=== PATIENT | male | born 1945 | race African-American/Black ===

== ENCOUNTER 2017-04-03 17:48 | Inpatient (IN) | payer MEDICARE, OTHER ==
[~2017-04-03] VITALS: Ht 172.7 cm; Wt 83.9 kg
[~2017-04-03 17:48] MED LIST: AMLO10TA4 PO; METO50TA7 PO; TAMS-3 PO
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
[2017-04-03] MEDS ORDERED: BISA10SU8 RC (18:26)
[2017-04-03] MEDS ORDERED: ALBU6.7H IH (18:26)
[2017-04-03] MEDS ORDERED: DOCU250C14 PO (18:26)
[2017-04-03] MEDS ORDERED: RISP4TAB4 PO (18:26)
[2017-04-03] MEDS ORDERED: MAGN400O6 PO (18:26)
[2017-04-03] MEDS ORDERED: NA P133E RC (18:26)
[2017-04-03] MEDS ORDERED: MELA5TAB PO (18:26)
[2017-04-03] MEDS ORDERED: MULT1TAB73 PO (18:26)
[2017-04-03] MEDS ORDERED: MAG355OR18 PO (18:26)
[2017-04-03] MEDS ORDERED: TEMA15CA PO (18:26)
[2017-04-03] MEDS ORDERED: LORA1TAB PO (18:26)
[2017-04-03] MEDS ORDERED: PSYL1PAC8 PO (18:26)
[2017-04-03] MEDS ORDERED: ZONI100C6 PO (18:26)
[2017-04-03] MEDS ORDERED: CLON0.1T PO (18:26)
[2017-04-03] MEDS ORDERED: ACET-2154 PO (18:26)
[2017-04-03] MEDS ORDERED: BENZ1TAB7 PO (18:26)
[2017-04-03 18:37] LABS: CARBON DIOXIDE 27 mmol/L (21-32); CHLORIDE 107 mmol/L (98-107); CREATININE 1.2 mg/dL (0.6-1.3); GLUCOSE 111 mg/dL (74-106); POTASSIUM 4.4 mmol/L (3.5-5.1); UREA NITROGEN, BLOOD 20 mg/dL (7-18)
[2017-04-03 18:43] LABS: ACETAMINOPHEN < 2.0 ug/mL (10-30); ALANINE AMINOTRANSFERASE 16 U/L (16-63); ALKALINE PHOSPHATASE 43 U/L (50-136); ASPARTATE AMINOTRANSFERASE 14 U/L (15-37); BASOPHILS # (AUTO) 0.1 K/uL (0.0-8.0); BASOPHILS % (AUTO) 0.7 % (0.0-2.0); BILIRUBIN,DIRECT 0.1 mg/dL (0.0-0.2); BILIRUBIN,TOTAL 0.3 mg/dL (0.2-1.0); EOSINOPHILS # (AUTO) 0.3 K/uL (0.0-0.7); EOSINOPHILS % (AUTO) 2.9 % (0.0-7.0); HEMATOCRIT 49.7 % (40-50); HEMOGLOBIN 16.3 G/DL (14.0-18.0); LYMPHOCYTES # (AUTO) 1.7 K/UL (0.8-4.8); LYMPHOCYTES % (AUTO) 15.7 % (20.5-51.5); MEAN CORPUSCULAR HEMOGLOBIN 27.6 UUG (27.0-31.0); MEAN CORPUSCULAR HGB CONC 33 g/dL (32.0-37.0); MEAN CORPUSCULAR VOLUME 84.2 FL (82.0-92.0); MONOCYTES # (AUTO) 0.5 K/UL (0.1-1.30); MONOCYTES % (AUTO) 4.3 % (0.0-11.0); NEUTROPHILS # (AUTO) 8.1 K/UL (1.8-8.9); NEUTROPHILS % (AUTO) 76.4 % (38.5-71.5); PLATELET COUNT (AUTO) 239 K/UL (150-450); RED BLOOD CELL COUNT(AUTO) 5.91 MIL/UL (4.7-6.1); TOTAL PROTEIN, SERUM 6.4 g/dL (6.4-8.2); WHITE BLOOD COUNT (AUTO) 10.7 K/UL (4.0-11.2)
[2017-04-03 18:44] LABS: ETHANOL < 3 MG/DL (0-0)
[2017-04-03 19:26] LABS: THYROID STIMULATING HORMONE 0.528 mIU/mL (0.358-3.740)
--- NOTE | 2017-04-03 20:01 | NUR ---
Pt. admitted to GPS, under care of Dr. Dumont Belongs List completed
[2017-04-03] MEDS ORDERED: MAG HYDROX/AL HYDROX/SIMETH 30 ML LIQUID UDC PO PRN (20:45)
[2017-04-03] MEDS ORDERED: OLANZAPINE 10 MG VIAL IM ONE (20:45)
[2017-04-03] MEDS ORDERED: LORAZEPAM 1 MG TABLET PO PRN (20:45)
[2017-04-03] MEDS ORDERED: ACETAMINOPHEN 325 MG TABLET PO PRN (20:45)
[2017-04-03] MEDS ORDERED: TEMAZEPAM 7.5 MG CAPSULE PO PRN (20:45)
[2017-04-03] MEDS ORDERED: MAGNESIUM HYDROXIDE 30 ML LIQUID UDC PO PRN (20:45)
[2017-04-03] MEDS ORDERED: BISACODYL 10 MG SUPP.RECT RC PRN (21:45)
[2017-04-03] MEDS ORDERED: CLONIDINE HCL 0.1 MG TABLET PO PRN (21:45)
[2017-04-03] MEDS ORDERED: FLEET ENEMA 133 ML BOTTLE RC PRN (21:45)
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
[2017-04-04] MEDS: DOCUSATE SODIUM 250 MG CAPSULE PO SCH (08:46)
[2017-04-04] MEDS: MULTIVITAMINS,THERAPEUTIC TABLET PO SCH (08:46)
--- NOTE | 2017-04-04 08:50 | NUR ---
GPS RN NOTE PT WAS ANXIOUS, MUMBLING WORDS. OFFERED ATIVAN. PT CRUSHED MEDS WITH HIS FINGERS, REFUSED ATIVAN BUT TOOK HIS OTHER AM MEDS. STATED "I'LL BE OK". WILL MONITOR.
--- NOTE | 2017-04-04 09:21 | NUR ---
GPS RN NOTE PT STRONGLY REFUSED CT CHEST. PT STATED HE DID IT YESTERDAY AND WILL NOT DO IT AGAIN. INFORMED PT THAT HE DID HEAD YESTERDAY, PT STILL STRONGLY REFUSED DESPITE ENCOURAGEMENT.
--- NOTE | 2017-04-04 10:14 | NUR ---
GPS RN PT STRONGLY REFUSED CHEST CT W/O CONTRAST. PT STATED "NO NO NO. I AM NOT DOING IT". OFFERED X2. PT STILL REFUSED.
[2017-04-04 15:00] VITALS: BP 169/89
[2017-04-04] MEDS: ZONISAMIDE 100 MG CAPSULE PO SCH ×2 (16:01→22:00)
[2017-04-04] MEDS: risperiDONE-M 0.5 MG TAB.RAPDIS PO SCH ×2 (16:04→16:18)
[2017-04-04] MEDS: BENZTROPINE MESYLATE 0.5 MG TABLET PO SCH (16:17)
--- NOTE | 2017-04-04 16:21 | NUR ---
GPS RN NOTE PT STRONGLY REFUSED COGENTIN AND RISPERDAL DESPITE ENCOURAGEMENT. PT STATED I ONLY TAKE ONE PILL. PER PHARMACY, THEY DO NOT HAVE RISPERDAL IN ONE PILL.
[2017-04-04 20:15] VITALS: BP 119/80
--- NOTE | 2017-04-04 22:59 | NUR ---
Nurses's note: GPS 23:00 Patient refused to take Zonegram 100mg. Risk and benefits were explained to him x 3; however, he refused.
[2017-04-05] MEDS: ZONISAMIDE 100 MG CAPSULE PO SCH ×3 (07:05→21:53)
[2017-04-05 07:30] VITALS: BP 146/82
[2017-04-05] MEDS: MULTIVITAMINS,THERAPEUTIC TABLET PO SCH (09:00)
[2017-04-05] MEDS: risperiDONE-M 0.5 MG TAB.RAPDIS PO SCH ×2 (09:00→17:00)
[2017-04-05] MEDS: BENZTROPINE MESYLATE 0.5 MG TABLET PO SCH ×2 (09:00→17:00)
[2017-04-05] MEDS: DOCUSATE SODIUM 250 MG CAPSULE PO SCH (09:00)
[2017-04-05] MEDS ORDERED: CLONIDINE HCL 0.1 MG TABLET PO PRN (10:30)
[2017-04-05 15:26] VITALS: BP 140/53
[2017-04-05 19:55] VITALS: BP 143/66
[2017-04-06] MEDS: ZONISAMIDE 100 MG CAPSULE PO SCH ×3 (06:46→22:02)
[2017-04-06 07:30] VITALS: BP 141/85
[2017-04-06] MEDS: risperiDONE-M 0.5 MG TAB.RAPDIS PO SCH (09:00)
[2017-04-06] MEDS: BENZTROPINE MESYLATE 0.5 MG TABLET PO SCH ×2 (09:01→17:00)
[2017-04-06] MEDS: MULTIVITAMINS,THERAPEUTIC TABLET PO SCH (09:01)
[2017-04-06] MEDS: DOCUSATE SODIUM 250 MG CAPSULE PO SCH (09:02)
[2017-04-06] MEDS: AMLODIPINE 5 MG TABLET PO SCH (10:45)
[2017-04-06] MEDS ORDERED: OLANZAPINE ZYDIS 5 MG TAB.RAPDIS PO SCH (11:00)
--- NOTE | 2017-04-06 13:17 | NUR ---
Initial discharge instructions: Pt is residing at [facility] [[address] [place], [place].].Spoke with Can at the facility who stated the pt may not return back.However,per Can the facility will try and place him at one of their sister facilities.Spoke with pt's sister,Delicia Urena [phone] who is aware and agreeable with new SNF placement.SW will speak with MD regarding appropriate discharge plans.SW will form a safe and proper discharge.
[2017-04-06 16:37] VITALS: BP_SYST 136; BP_SYST 143; BP_DIAS 62; BP_DIAS 82
[2017-04-06] MEDS: risperiDONE 2 MG TABLET PO SCH (17:00)
[2017-04-06 20:00] VITALS: BP 129/70
[2017-04-06] MEDS ORDERED: DIVALPROEX SPRINKLE 125 MG CAP.SPRINK PO SCH (21:00)
--- NOTE | 2017-04-07 02:02 | NUR ---
GPS.RN- PATIENT SLEEPING IN BED NO DISTRESS NOTED.
--- NOTE | 2017-04-07 02:14 | NUR ---
PATIENT REFUSED WEEKLY WEIGHT Addendum: 04/07/17 at 0215 by WENDY JASSO RN Amended: Links added.
[2017-04-07] MEDS: ZONISAMIDE 100 MG CAPSULE PO SCH ×3 (06:32→22:00)
[2017-04-07 07:40] VITALS: BP 141/93
[2017-04-07] MEDS: DOCUSATE SODIUM 250 MG CAPSULE PO SCH ×2 (08:55→09:00)
[2017-04-07] MEDS: BENZTROPINE MESYLATE 0.5 MG TABLET PO SCH ×3 (08:55→17:00)
[2017-04-07] MEDS: risperiDONE 2 MG TABLET PO SCH ×2 (08:55→09:02)
[2017-04-07] MEDS: MULTIVITAMINS,THERAPEUTIC TABLET PO SCH ×2 (08:56→09:00)
[2017-04-07] MEDS: AMLODIPINE 5 MG TABLET PO SCH ×2 (08:56→09:00)
[2017-04-07] MEDS: OLANZAPINE ZYDIS 5 MG TAB.RAPDIS PO SCH ×4 (11:00→17:23)
[2017-04-07] MEDS: DIVALPROEX SPRINKLE 125 MG CAP.SPRINK PO SCH ×2 (11:00→20:38)
[2017-04-07 15:19] VITALS: BP 141/79
--- NOTE | 2017-04-07 18:13 | NUR ---
patient has been refusing medications and ant interaction all shift , isolative in room with no self discloseure
[2017-04-07 20:17] VITALS: BP 142/94
[2017-04-08] MEDS: ZONISAMIDE 100 MG CAPSULE PO SCH ×3 (06:46→21:06)
[2017-04-08] MEDS: BENZTROPINE MESYLATE 0.5 MG TABLET PO SCH ×2 (08:49→18:09)
[2017-04-08] MEDS: MULTIVITAMINS,THERAPEUTIC TABLET PO SCH (08:50)
[2017-04-08] MEDS: DIVALPROEX SPRINKLE 125 MG CAP.SPRINK PO SCH ×2 (08:55→21:05)
[2017-04-08] MEDS: DOCUSATE SODIUM 250 MG CAPSULE PO SCH (08:55)
[2017-04-08] MEDS: OLANZAPINE ZYDIS 5 MG TAB.RAPDIS PO SCH ×3 (08:55→18:23)
--- NOTE | 2017-04-08 08:55 | NUR ---
GPS./RN- Patient offered meds this am, verbalizing he will take them, once offered patient goes on to voicing delusional paranoid thoughts "I don't want morphine, morphine is somewhere in you or on you and its gonna explode". patient redirected for emotional support; redirected to current meds and what they are for. patient continues with pressured speech nonsensical. patient compliant only with multivitamin and cogentin , refused all others meds.
[2017-04-08] MEDS: AMLODIPINE 5 MG TABLET PO SCH (08:58)
[2017-04-08] MEDS ORDERED: OLANZAPINE 10 MG VIAL IM ONE (10:30)
--- NOTE | 2017-04-09 06:30 | NUR ---
Patient refused routine morning meds today. No acute distress. Slept 9 hrs.
[2017-04-09] MEDS: ZONISAMIDE 100 MG CAPSULE PO SCH ×3 (06:38→21:16)
[2017-04-09 07:30] VITALS: BP 128/81
[2017-04-09] MEDS: DOCUSATE SODIUM 250 MG CAPSULE PO SCH (09:00)
[2017-04-09] MEDS: BENZTROPINE MESYLATE 0.5 MG TABLET PO SCH ×2 (09:54→17:54)
[2017-04-09] MEDS: DIVALPROEX SPRINKLE 125 MG CAP.SPRINK PO SCH ×2 (09:54→20:32)
[2017-04-09] MEDS: MULTIVITAMINS,THERAPEUTIC TABLET PO SCH (09:55)
[2017-04-09] MEDS: AMLODIPINE 5 MG TABLET PO SCH (09:55)
[2017-04-09] MEDS: OLANZAPINE ZYDIS 5 MG TAB.RAPDIS PO SCH ×2 (09:55→17:53)
[2017-04-09 15:53] VITALS: BP 166/92
--- NOTE | 2017-04-09 16:18 | NUR ---
GPS.RN- Dr Dumont increased Zyprexa to 7.5mg by mouth BID, confirmed with Dr Dumont that she is increasing only Zyprexa PO at this time not IM orders.
[2017-04-09 21:36] VITALS: BP 114/72
[2017-04-10] MEDS: ZONISAMIDE 100 MG CAPSULE PO SCH ×3 (05:38→21:39)
[2017-04-10 07:30] VITALS: BP 133/82
--- NOTE | 2017-04-10 07:44 | NUR ---
GPS.RN-Patient received resting in bed , no distress noted.
[2017-04-10] MEDS: MULTIVITAMINS,THERAPEUTIC TABLET PO SCH ×2 (09:00→09:03)
[2017-04-10] MEDS: DOCUSATE SODIUM 250 MG CAPSULE PO SCH ×2 (09:00→09:04)
[2017-04-10] MEDS: BENZTROPINE MESYLATE 0.5 MG TABLET PO SCH ×2 (09:04→16:59)
[2017-04-10] MEDS: DIVALPROEX SPRINKLE 125 MG CAP.SPRINK PO SCH ×2 (09:04→20:02)
[2017-04-10] MEDS: AMLODIPINE 5 MG TABLET PO SCH (09:04)
[2017-04-10] MEDS: OLANZAPINE ZYDIS 5 MG TAB.RAPDIS PO SCH ×2 (09:04→16:59)
[2017-04-10 16:00] VITALS: BP 125/73
[2017-04-10 20:00] VITALS: BP 136/77
[2017-04-11] MEDS: ZONISAMIDE 100 MG CAPSULE PO SCH ×3 (05:29→21:09)
--- NOTE | 2017-04-11 06:08 | NUR ---
GPS:REMAIN CONFUSED AND DISORIENTED THROUGH THE NIGHT.NO AGITATION NOTED THIS TIME.COMPLIANT WITH MEDS. SLEPT 03;30 HRS THROUGH THE NIGHT. CONTINUE PLAN OF CARE.
[2017-04-11 07:30] VITALS: BP 137/79
[2017-04-11] MEDS: DIVALPROEX SPRINKLE 125 MG CAP.SPRINK PO SCH ×2 (08:32→20:06)
[2017-04-11] MEDS: BENZTROPINE MESYLATE 0.5 MG TABLET PO SCH ×2 (08:32→17:00)
[2017-04-11] MEDS: OLANZAPINE ZYDIS 5 MG TAB.RAPDIS PO SCH ×2 (08:32→17:00)
[2017-04-11] MEDS: DOCUSATE SODIUM 250 MG CAPSULE PO SCH (08:33)
[2017-04-11] MEDS: MULTIVITAMINS,THERAPEUTIC TABLET PO SCH (08:33)
[2017-04-11] MEDS: AMLODIPINE 5 MG TABLET PO SCH (08:33)
[2017-04-11 16:00] VITALS: BP 121/71
[2017-04-11 20:11] VITALS: BP 135/78
[2017-04-12] MEDS: ZONISAMIDE 100 MG CAPSULE PO SCH ×3 (06:17→22:08)
--- NOTE | 2017-04-12 06:28 | NUR ---
gps: remain confused wondering around in the unit. no agitation noted. slept 06:30 hrs through the night.
[2017-04-12 07:30] VITALS: BP 116/73
[2017-04-12] MEDS: DIVALPROEX SPRINKLE 125 MG CAP.SPRINK PO SCH ×2 (09:00→22:07)
[2017-04-12] MEDS: MULTIVITAMINS,THERAPEUTIC TABLET PO SCH (09:00)
[2017-04-12] MEDS: OLANZAPINE ZYDIS 5 MG TAB.RAPDIS PO SCH ×2 (09:00→18:01)
[2017-04-12] MEDS: BENZTROPINE MESYLATE 0.5 MG TABLET PO SCH ×2 (09:00→18:01)
[2017-04-12] MEDS: DOCUSATE SODIUM 250 MG CAPSULE PO SCH (09:01)
[2017-04-12] MEDS: AMLODIPINE 5 MG TABLET PO SCH (09:01)
[2017-04-12 16:00] VITALS: BP 125/69
[2017-04-12 22:14] VITALS: BP 132/72
[2017-04-13] MEDS: ZONISAMIDE 100 MG CAPSULE PO SCH ×3 (06:00→21:10)
[2017-04-13 07:30] VITALS: BP 122/54
[2017-04-13] MEDS: DIVALPROEX SPRINKLE 125 MG CAP.SPRINK PO SCH ×2 (08:59→21:10)
[2017-04-13] MEDS: DOCUSATE SODIUM 250 MG CAPSULE PO SCH (08:59)
[2017-04-13] MEDS: BENZTROPINE MESYLATE 0.5 MG TABLET PO SCH ×3 (08:59→17:00)
[2017-04-13] MEDS: MULTIVITAMINS,THERAPEUTIC TABLET PO SCH (09:00)
[2017-04-13] MEDS: AMLODIPINE 5 MG TABLET PO SCH (09:00)
[2017-04-13] MEDS: OLANZAPINE ZYDIS 5 MG TAB.RAPDIS PO SCH ×2 (09:00→17:00)
[2017-04-13] MEDS: OLANZAPINE 10 MG VIAL IM PRN ×2 (09:01→17:29)
[2017-04-13] MEDS ORDERED: FLUPHENAZINE PO SCH (12:15)
[2017-04-13] MEDS ORDERED: FLUPHENAZINE HCL 2.5 MG/ML 10ML VIAL IM PRN (12:15)
[2017-04-13] MEDS: FLUPHENAZINE HCL 5 MG TABLET PO SCH ×2 (13:28→21:10)
[2017-04-13 16:11] VITALS: BP 136/83
[2017-04-13 20:23] VITALS: BP 124/76
[2017-04-14] MEDS: ZONISAMIDE 100 MG CAPSULE PO SCH ×3 (06:24→22:00)
[2017-04-14 07:30] VITALS: BP 120/75
[2017-04-14 07:31] LABS: BASOPHILS % (AUTO) 0.5 % (0.0-2.0); EOSINOPHILS # (AUTO) 0.3 K/uL (0.0-0.7); EOSINOPHILS % (AUTO) 3.4 % (0.0-7.0); HEMATOCRIT 52.9 % (40-50); HEMOGLOBIN 17.5 G/DL (14.0-18.0); LYMPHOCYTES # (AUTO) 1.8 K/UL (0.8-4.8); LYMPHOCYTES % (AUTO) 18.7 % (20.5-51.5); MEAN CORPUSCULAR HEMOGLOBIN 28.4 UUG (27.0-31.0); MEAN CORPUSCULAR HGB CONC 33 g/dL (32.0-37.0); MEAN CORPUSCULAR VOLUME 85.6 FL (82.0-92.0); MONOCYTES # (AUTO) 0.4 K/UL (0.1-1.30); NEUTROPHILS # (AUTO) 7.2 K/UL (1.8-8.9); NEUTROPHILS % (AUTO) 73.4 % (38.5-71.5); PLATELET COUNT (AUTO) 215 K/UL (150-450); RED BLOOD CELL COUNT(AUTO) 6.18 MIL/UL (4.7-6.1); WHITE BLOOD COUNT (AUTO) 9.7 K/UL (4.0-11.2)
[2017-04-14 08:09] LABS: CREATININE 1.1 mg/dL (0.6-1.3); PHOSPHOROUS 3.2 mg/dL (2.5-4.9); POTASSIUM 4.6 mmol/L (3.5-5.1)
[2017-04-14] MEDS: DOCUSATE SODIUM 250 MG CAPSULE PO SCH (08:32)
[2017-04-14] MEDS: DIVALPROEX SPRINKLE 125 MG CAP.SPRINK PO SCH ×2 (08:33→20:07)
[2017-04-14] MEDS: BENZTROPINE MESYLATE 0.5 MG TABLET PO SCH ×2 (08:33→17:40)
[2017-04-14] MEDS: AMLODIPINE 5 MG TABLET PO SCH (08:35)
[2017-04-14] MEDS: MULTIVITAMINS,THERAPEUTIC TABLET PO SCH (08:35)
[2017-04-14] MEDS: FLUPHENAZINE HCL 5 MG TABLET PO SCH ×2 (08:35→20:07)
[2017-04-14] MEDS: OLANZAPINE ZYDIS 5 MG TAB.RAPDIS PO SCH ×2 (08:35→17:40)
[2017-04-14 16:50] VITALS: BP 122/79
[2017-04-14 20:18] VITALS: BP 124/74
[2017-04-15] MEDS: ZONISAMIDE 100 MG CAPSULE PO SCH ×3 (05:47→21:48)
--- NOTE | 2017-04-15 06:50 | NUR ---
GPS: REMAIN CALM AND COOPERATIVE.STILL CONFUSED AND TALKING TO HIM SELF.SLEPT 8 HRS THROUGH THE NIGHT. CONTINUE PLAN OF CARE.
[2017-04-15 07:30] VITALS: BP 124/78
[2017-04-15] MEDS: BENZTROPINE MESYLATE 0.5 MG TABLET PO SCH ×2 (08:19→16:45)
[2017-04-15] MEDS: FLUPHENAZINE HCL 5 MG TABLET PO SCH ×2 (08:19→20:19)
[2017-04-15] MEDS: DOCUSATE SODIUM 250 MG CAPSULE PO SCH (08:20)
[2017-04-15] MEDS: DIVALPROEX SPRINKLE 125 MG CAP.SPRINK PO SCH ×2 (08:20→20:21)
[2017-04-15] MEDS: OLANZAPINE ZYDIS 5 MG TAB.RAPDIS PO SCH ×2 (08:20→16:45)
[2017-04-15] MEDS: MULTIVITAMINS,THERAPEUTIC TABLET PO SCH (08:20)
[2017-04-15] MEDS: AMLODIPINE 5 MG TABLET PO SCH (08:21)
[2017-04-15 09:03] LABS: BILIRUBIN,DIRECT 0.1 mg/dL (0.0-0.2); BILIRUBIN,TOTAL 0.4 mg/dL (0.2-1.0); TOTAL PROTEIN, SERUM 6.4 g/dL (6.4-8.2)
[2017-04-15] MEDS ORDERED: DEXTROSE 50% 50 ML DISP.SYRIN IV PRN (14:45)
[2017-04-15 16:00] VITALS: BP 135/69
[2017-04-15] MEDS: BLOOD SUGAR DIAGNOSTIC 1 EACH STRIP VI SCH ×2 (16:21→20:31)
[2017-04-15 20:07] VITALS: BP 115/64
[2017-04-16] MEDS: ZONISAMIDE 100 MG CAPSULE PO SCH ×3 (06:36→21:54)
[2017-04-16] MEDS: BLOOD SUGAR DIAGNOSTIC 1 EACH STRIP VI SCH ×4 (06:40→21:00)
[2017-04-16] MEDS: OLANZAPINE ZYDIS 5 MG TAB.RAPDIS PO SCH ×3 (09:00→17:09)
[2017-04-16] MEDS: DOCUSATE SODIUM 250 MG CAPSULE PO SCH (09:00)
[2017-04-16] MEDS: MULTIVITAMINS,THERAPEUTIC TABLET PO SCH (09:47)
[2017-04-16] MEDS: BENZTROPINE MESYLATE 0.5 MG TABLET PO SCH ×2 (09:48→16:53)
[2017-04-16] MEDS: DIVALPROEX SPRINKLE 125 MG CAP.SPRINK PO SCH ×2 (09:48→21:54)
[2017-04-16] MEDS: FLUPHENAZINE HCL 5 MG TABLET PO SCH ×2 (09:49→21:54)
[2017-04-16] MEDS: OLANZAPINE 10 MG VIAL IM PRN ×4 (09:50→17:08)
[2017-04-16] MEDS: AMLODIPINE 5 MG TABLET PO SCH (09:56)
[2017-04-16 14:36] VITALS: BP 138/82
[2017-04-16] MEDS ORDERED: MAGNESIUM HYDROXIDE 30 ML LIQUID UDC PO ONE (15:00)
[2017-04-16 15:28] VITALS: BP 128/82
[2017-04-16] MEDS ORDERED: FLUPHENAZINE DECANOATE 25 MG/ML 5ML VIAL IM ONE (16:30)
--- NOTE | 2017-04-16 19:00 | NUR ---
Pt. declined zyprexa po this morning and requested " A shot" medicated as ordered Zyprexa IM. Pt. cooperitive with medication po intake this evening. Pt. Drinks lots of fluids during the day. Pt. can be challenging with nursing care declines care and request to come back. Pt. sister called today and Pt. did speak to her. VSS, afebile no distress noted. Pt. cont. to talk to self and pace in hallway. Pt. eats in dinning room and watches TV. Noted Pt. out in patio today.
[2017-04-16 20:13] VITALS: BP 136/88
--- NOTE | 2017-04-16 21:50 | NUR ---
Patient refused blood sugar check. Educated patient on diabetes and the possible risks. Patient verbalized understanding, and says he refuses to have it checked again until tomorrow morning. No pain reported. Patient exhibits no signs or complaints of distress. No signs of hypoglycemia noted. Will continue to monitor
[2017-04-17] MEDS: ZONISAMIDE 100 MG CAPSULE PO SCH ×3 (06:56→22:00)
[2017-04-17] MEDS: BLOOD SUGAR DIAGNOSTIC 1 EACH STRIP VI SCH ×5 (07:04→22:52)
[2017-04-17 07:30] VITALS: BP 146/86
[2017-04-17] MEDS: DOCUSATE SODIUM 250 MG CAPSULE PO SCH (08:10)
[2017-04-17] MEDS: AMLODIPINE 5 MG TABLET PO SCH (08:10)
[2017-04-17] MEDS: FLUPHENAZINE HCL 5 MG TABLET PO SCH ×2 (08:10→21:04)
[2017-04-17] MEDS: MULTIVITAMINS,THERAPEUTIC TABLET PO SCH (08:10)
[2017-04-17] MEDS: DIVALPROEX SPRINKLE 125 MG CAP.SPRINK PO SCH (08:10)
[2017-04-17] MEDS: OLANZAPINE ZYDIS 5 MG TAB.RAPDIS PO SCH ×2 (08:10→16:52)
[2017-04-17] MEDS: BENZTROPINE MESYLATE 0.5 MG TABLET PO SCH ×2 (08:10→16:52)
[2017-04-17] MEDS: INSULIN REGULAR, HUMAN 300 UNIT/3 ML VIAL SQ PRN ×3 (08:35→17:31)
[2017-04-17] MEDS ORDERED: BISACODYL 10 MG SUPP.RECT RC PRN (10:45)
[2017-04-17] MEDS ORDERED: MAGNESIUM HYDROXIDE 30 ML LIQUID UDC PO ONE (10:45)
--- NOTE | 2017-04-17 11:33 | NUR ---
GPS RN NOTE PT REFUSED MOM. PT STATED " I DON'T NEED THAT, MY BM IS OK, I GO TO THE BATHROOM, I DON'T WANT TO BE DEPENDENT ON THAT". WILL MONITOR.
[2017-04-17] MEDS ORDERED: BISACODYL 5 MG TABLET.DR PO ONE (16:15)
[2017-04-17 16:29] VITALS: BP 122/66
[2017-04-17 20:31] VITALS: BP 143/77
[2017-04-17] MEDS ORDERED: DIVALPROEX SPRINKLE 125 MG CAP.SPRINK PO SCH ×2 (21:00)
[2017-04-18] MEDS: ZONISAMIDE 100 MG CAPSULE PO SCH ×3 (06:00→21:19)
[2017-04-18] MEDS: BLOOD SUGAR DIAGNOSTIC 1 EACH STRIP VI SCH (07:30)
[2017-04-18] MEDS: AMLODIPINE 5 MG TABLET PO SCH (09:00)
[2017-04-18] MEDS: DIVALPROEX SPRINKLE 125 MG CAP.SPRINK PO SCH ×2 (09:00→20:48)
[2017-04-18] MEDS: BENZTROPINE MESYLATE 0.5 MG TABLET PO SCH ×2 (09:00→16:48)
[2017-04-18] MEDS: FLUPHENAZINE HCL 5 MG TABLET PO SCH ×2 (09:00→20:47)
[2017-04-18] MEDS: MULTIVITAMINS,THERAPEUTIC TABLET PO SCH (09:00)
[2017-04-18] MEDS: DOCUSATE SODIUM 250 MG CAPSULE PO SCH (09:00)
[2017-04-18] MEDS: OLANZAPINE ZYDIS 5 MG TAB.RAPDIS PO SCH ×2 (09:00→16:50)
[2017-04-18] MEDS: OLANZAPINE 10 MG VIAL IM PRN (09:28)
[2017-04-18] MEDS ORDERED: DEXTROSE 50% 50 ML DISP.SYRIN IV PRN (12:35)
[2017-04-18] MEDS ORDERED: INSULIN REGULAR, HUMAN 300 UNIT/3 ML VIAL SQ PRN (12:36)
[2017-04-18 15:44] VITALS: BP 141/89
[2017-04-18] MEDS ORDERED: BENZTROPINE MESYLATE 2 MG/2 ML AMPUL IM PRN (17:00)
[2017-04-18 20:02] VITALS: BP 105/64
[2017-04-19] MEDS: ZONISAMIDE 100 MG CAPSULE PO SCH ×3 (06:29→22:01)
[2017-04-19] MEDS ORDERED: BLOOD SUGAR DIAGNOSTIC 1 EACH STRIP VI SCH (07:00)
[2017-04-19 08:30] VITALS: BP 100/63
[2017-04-19] MEDS: DIVALPROEX SPRINKLE 125 MG CAP.SPRINK PO SCH ×2 (08:46→20:08)
[2017-04-19] MEDS: BENZTROPINE MESYLATE 0.5 MG TABLET PO SCH ×2 (08:47→17:27)
[2017-04-19] MEDS: FLUPHENAZINE HCL 5 MG TABLET PO SCH ×2 (08:47→20:07)
[2017-04-19] MEDS: DOCUSATE SODIUM 250 MG CAPSULE PO SCH (08:47)
[2017-04-19] MEDS: MULTIVITAMINS,THERAPEUTIC TABLET PO SCH (08:47)
[2017-04-19] MEDS: OLANZAPINE ZYDIS 5 MG TAB.RAPDIS PO SCH ×2 (08:47→17:27)
[2017-04-19] MEDS: AMLODIPINE 5 MG TABLET PO SCH (08:54)
[2017-04-19 15:35] VITALS: BP 141/83
[2017-04-19 19:44] VITALS: BP 120/64
--- NOTE | 2017-04-19 21:10 | NUR ---
PATIENT RECEIVED IN BED AWAKE. PATIENT COMPLAINT WITH PO MEDICATION. PATIENT IN NO APPARENT DISTRESS, NO AGITATION NOTED. NO AGGRESSIVE OR COMBATIVE BEHAVIOR NOTED. PATIENT IS UNPREDICTABLE, IS EASILY AGITATED, AND EASILY IRRITABLE WILL CONTINUE TO MONITOR. PATIENT DENIES PAIN AT THIS TIME, WILL CONTINUE TO MONITOR. BED IN LOWEST POSITION, BED LOCKED.
[2017-04-20] MEDS: ZONISAMIDE 100 MG CAPSULE PO SCH ×3 (06:24→23:11)
[2017-04-20] MEDS: BLOOD SUGAR DIAGNOSTIC 1 EACH STRIP VI SCH (06:38)
[2017-04-20] MEDS ORDERED: INSULIN REGULAR, HUMAN 300 UNIT/3 ML VIAL SQ PRN (06:59)
[2017-04-20] MEDS ORDERED: DEXTROSE 50% 50 ML DISP.SYRIN IV PRN (06:59)
[2017-04-20 07:30] VITALS: BP 134/85
[2017-04-20] MEDS: FLUPHENAZINE HCL 5 MG TABLET PO SCH ×2 (08:55→20:07)
[2017-04-20] MEDS: AMLODIPINE 5 MG TABLET PO SCH (08:55)
[2017-04-20] MEDS: MULTIVITAMINS,THERAPEUTIC TABLET PO SCH (08:55)
[2017-04-20] MEDS: DOCUSATE SODIUM 250 MG CAPSULE PO SCH (08:55)
[2017-04-20] MEDS: OLANZAPINE ZYDIS 5 MG TAB.RAPDIS PO SCH ×2 (08:55→16:19)
[2017-04-20] MEDS: DIVALPROEX SPRINKLE 125 MG CAP.SPRINK PO SCH ×2 (08:55→20:07)
[2017-04-20] MEDS: BENZTROPINE MESYLATE 0.5 MG TABLET PO SCH ×2 (08:55→16:19)
[2017-04-20 15:18] VITALS: BP 128/81
[2017-04-20 20:37] VITALS: BP 136/73
--- NOTE | 2017-04-20 21:03 | NUR ---
PATIENT RECEIVED IN BED AWAKE. PATIENT COMPLAINT WITH PO MEDICATION. PATIENT IN NO APPARENT DISTRESS, NO AGITATION NOTED. NO AGGRESSIVE OR COMBATIVE BEHAVIOR NOTED. PATIENT IS UNPREDICTABLE, IS EASILY AGITATED, AND EASILY IRRITABLE WILL CONTINUE TO MONITOR. PATIENT DENIES PAIN AT THIS TIME, WILL CONTINUE TO MONITOR. BED IN LOWEST POSITION, BED LOCKED. PATIENT AMBULATORY AND ABLE TO MAKE NEEDS KNOWN. PATIENT DENIES PAIN AT THIS TIME, WILL CONTINUE TO MONITOR.
[2017-04-21] MEDS: BLOOD SUGAR DIAGNOSTIC 1 EACH STRIP VI SCH (06:36)
[2017-04-21] MEDS: ZONISAMIDE 100 MG CAPSULE PO SCH ×2 (06:52→13:12)
[2017-04-21 07:30] VITALS: BP 122/72
[2017-04-21] MEDS: DIVALPROEX SPRINKLE 125 MG CAP.SPRINK PO SCH (08:10)
[2017-04-21] MEDS: OLANZAPINE ZYDIS 5 MG TAB.RAPDIS PO SCH (08:14)
[2017-04-21] MEDS: BENZTROPINE MESYLATE 0.5 MG TABLET PO SCH (08:15)
[2017-04-21] MEDS: DOCUSATE SODIUM 250 MG CAPSULE PO SCH (08:15)
[2017-04-21 08:16] VITALS: BP 122/72
[2017-04-21] MEDS: AMLODIPINE 5 MG TABLET PO SCH (08:16)
[2017-04-21] MEDS: FLUPHENAZINE HCL 5 MG TABLET PO SCH (08:16)
[2017-04-21] MEDS: MULTIVITAMINS,THERAPEUTIC TABLET PO SCH (08:16)
--- NOTE | 2017-04-21 08:54 | NUR ---
DC Note: Patient will be discharged today to [facility] [[address] [place] [address], [id number]; [phone]] via ambulance at 12:00 pm. Please schedule an ambulance for the patient. Spoke with Summer in admissions at the facility who stated he would accept the patient today. Per Summer, patient will be assigned to Room-120 and Bed C. Spoke with patient's sister, Shanice Urena [phone] who is aware and agreeable with discharge plans. Patient is aware and agreeable with discharge plans. Patient will follow-up with ([facility]) and (Psychiatrist) at the facility. For smoking cessation, patient was referred to [employer] [id number] and [employer] .
--- NOTE | 2017-04-21 15:17 | NUR ---
1300 Called Kayla Mayorga-[facility] spoke to Rox FRANCIS report given regarding patient will be discharged today to their facility via ambulance. Also informed p about patient diagnosis, medications to continue upon hospital discharged.1415 Patient picked up by ambulance alert and ox2, denies suicidal thoughts/ denies homicidal ideation. No delusion/no hallucinations noted. 1420 Transported patient to SNF.
== END 2017-04-21 14:20 | DRG 885 ==
LOC: ER 17:51 → GPS 20:16
PROVIDERS: ADMIT Psychiatry & Neurology Psychosomatic Medicine; ATTEND Internal Medicine
DX: F25.0 Schizoaffective disorder, bipolar type (principal); N17.0 Acute kidney failure with tubular necrosis; E11.65 Type 2 diabetes mellitus with hyperglycemia; D68.9 Coagulation defect, unspecified; J98.11 Atelectasis; G40.909 Epilepsy, unspecified, not intractable, without status epilepticus; Z88.0 Allergy status to penicillin; Z88.2 Allergy status to sulfonamides; Z88.8 Allergy status to other drugs, medicaments and biological substances; I11.9 Hypertensive heart disease without heart failure; E78.5 Hyperlipidemia, unspecified; E88.09 Other disorders of plasma-protein metabolism, not elsewhere classified; F41.9 Anxiety disorder, unspecified; R93.8 Abnormal findings on diagnostic imaging of other specified body structures; K59.00 Constipation, unspecified; Z72.0 Tobacco use; Z91.19 Patient's noncompliance with other medical treatment and regimen; Z79.899 Other long term (current) drug therapy; I67.2 Cerebral atherosclerosis; I70.0 Atherosclerosis of aorta
CPT/HCPCS: 36415; 70030-TC; 70450; 71010; 80164; 83605; 83735; 84100; 84443; 85025; 85730; 87040; 93005; A4663; G0480; G0480-TC; J1815; J2358; J8499

== ENCOUNTER 2017-06-23 16:00 | Emergency (ER) | payer MEDICARE, OTHER ==
[~2017-06-23] VITALS: Ht 175.3 cm; Wt 77.1 kg
[~2017-06-23 16:00] MED LIST changes: +ACET-2154 PO; +ALBU6.7H IH; -AMLO10TA4 PO; +BISA10SU8 RC; +CLON0.1T PO; +DOCU250C14 PO; +MAG355OR18 PO; +MAGN400O6 PO; +MELA5TAB PO; -METO50TA7 PO; +MULT1TAB73 PO; +NA P133E RC; +PSYL1PAC8 PO; -TAMS-3 PO; +ZONI100C6 PO
[2017-06-23] MEDS ORDERED: TEMA7.5C2 PO (16:21)
[2017-06-23] MEDS ORDERED: RISP4TAB PO (16:21)
[2017-06-23] MEDS ORDERED: LORA1TAB PO (16:21)
[2017-06-23] MEDS ORDERED: BENZ1TAB7 PO (16:21)
[2017-06-23] MEDS ORDERED: AMLO5TAB4 PO (16:42)
[2017-06-23] MEDS ORDERED: TAMS-3 PO (16:42)
[2017-06-23] MEDS ORDERED: DIVA500T2 PO ×2 (16:42)
[2017-06-23] MEDS ORDERED: FLUP10TA7 PO (16:42)
[2017-06-23] MEDS ORDERED: OLAN7.5T3 PO (16:42)
[2017-06-23] MEDS ORDERED: FENO145T PO (16:42)
[2017-06-23 17:30] LABS: BASOPHILS # (AUTO) 0.4 K/uL (0.0-8.0); BASOPHILS % (AUTO) 3.4 % (0.0-2.0); EOSINOPHILS # (AUTO) 0.2 K/uL (0.0-0.7); EOSINOPHILS % (AUTO) 1.8 % (0.0-7.0); HEMATOCRIT 44.7 % (40-50); HEMOGLOBIN 14.1 G/DL (14.0-18.0); LYMPHOCYTES # (AUTO) 1.1 K/UL (0.8-4.8); LYMPHOCYTES % (AUTO) 10.5 % (20.5-51.5); MEAN CORPUSCULAR HEMOGLOBIN 27.2 UUG (27.0-31.0); MEAN CORPUSCULAR HGB CONC 32 g/dL (32.0-37.0); MEAN CORPUSCULAR VOLUME 86.5 FL (82.0-92.0); MONOCYTES # (AUTO) 0.6 K/UL (0.1-1.30); MONOCYTES % (AUTO) 5.7 % (0.0-11.0); NEUTROPHILS # (AUTO) 8.4 K/UL (1.8-8.9); NEUTROPHILS % (AUTO) 78.6 % (38.5-71.5); PLATELET COUNT (AUTO) 338 K/UL (150-450); RED BLOOD CELL COUNT(AUTO) 5.16 MIL/UL (4.7-6.1); WHITE BLOOD COUNT (AUTO) 10.8 K/UL (4.0-11.2)
[2017-06-23 17:34] LABS: CARBON DIOXIDE 31 mmol/L (21-32); CHLORIDE 110 mmol/L (98-107); CREATININE 1.1 mg/dL (0.6-1.3); GLUCOSE 131 mg/dL (74-106); POTASSIUM 4.1 mmol/L (3.5-5.1); UREA NITROGEN, BLOOD 23 mg/dL (7-18)
[2017-06-23 17:40] LABS: ACETAMINOPHEN 2.4 ug/mL (10-30); ALANINE AMINOTRANSFERASE 35 U/L (16-63); ALKALINE PHOSPHATASE 45 U/L (50-136); ASPARTATE AMINOTRANSFERASE 25 U/L (15-37); BILIRUBIN,DIRECT 0.1 mg/dL (0.0-0.2); BILIRUBIN,TOTAL 0.3 mg/dL (0.2-1.0)
[2017-06-23 17:46] LABS: ETHANOL < 3 MG/DL (0-0)
[2017-06-23 18:03] LABS: LYMPHOCYTES % (MANUAL) 12 % (20-40); MONOCYTES % (MANUAL) 8 % (2-10); NEUTROPHILS % (MANUAL) 80 % (42-75)
--- NOTE | 2017-06-23 18:22 | NUR ---
PT WALKING AROUND AND TALKING, NOT MAKING SENSE.
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
[2017-06-23] MEDS ORDERED: diphenhydrAMINE 50 MG/1 ML VIAL IM ONE (19:15)
[2017-06-23] MEDS ORDERED: OLANZAPINE 10 MG VIAL IM ONE ×2 (19:15→19:30)
[2017-06-23] MEDS ORDERED: diphenhydrAMINE 50 MG/1 ML VIAL ONE (19:30)
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
--- NOTE | 2017-06-23 19:45 | NUR ---
Patient is resting comfortably in bed with eyes closed.
[2017-06-23] MEDS ORDERED: IV NORMAL SALINE 1000 ML BAG IV ONE (20:00)
--- NOTE | 2017-06-23 20:45 | NUR ---
PET disk and tape machine tender, DONALD, arrived to interview patient.
--- NOTE | 2017-06-23 21:43 | NUR ---
Report given to Nahum at [facility].
--- NOTE | 2017-06-23 22:01 | NUR ---
Patient Tranfers to outside Facility Physician: Dr. Dumont Location: [facility]
== END 2017-06-23 22:04 | disposition short-term general hospital (02) ==
LOC: ER 16:02
DX: F31.9 Bipolar disorder, unspecified (principal); E86.0 Dehydration; N39.0 Urinary tract infection, site not specified; I10 Essential (primary) hypertension; G40.909 Epilepsy, unspecified, not intractable, without status epilepticus; Z88.0 Allergy status to penicillin; Z88.2 Allergy status to sulfonamides; F17.200 Nicotine dependence, unspecified, uncomplicated
CPT/HCPCS: 36415; 71010; 85025; 93005; A4663; G0480; G0480-TC; J1200; J2358; J7030